=== PATIENT | female | born 1980 | race Caucasian/White ===

== ENCOUNTER 2016-04-06 08:33 | Emergency (ER) | payer SELFPAY ==
[~2016-04-06] VITALS: Ht 160 cm; Wt 56.7 kg
[2016-04-06 09:00] VITALS: BP 124/81
[2016-04-06] MEDS ORDERED: SULF1TAB24 PO (09:09)
--- NOTE | 2016-04-06 09:09 | PHYS DOC ---
Adult General Chief Complaint Chief Complaint: UPPER EXTREMITY SWELLING [facility] HPI Patient is a 35 year old female presents with concern for a rash to left arm and an area of redness and crusting. Denies fever, known illness exposure, or accompanying symptoms. Reports area itches intermittently Review of Systems Review of Systems Constitutional: Denies fever or chills Eyes: Denies change in visual acuity, redness, or eye pain HENT: Denies nasal congestion or sore throat Respiratory: Denies cough or shortness of breath Cardiovascular: No additional information not addressed in HPI GI: Denies abdominal pain, nausea, vomiting, bloody stools or diarrhea : Denies dysuria or hematuria Musculoskeletal: Denies back pain or joint pain Integument: Rash to left upper arm with area of redness Neurologic: Denies headache, focal weakness or sensory changes Endocrine: Denies polyuria or polydipsia Allergies Allergies Allergies Coded Allergies Type Severity Reaction Last Updated Verified No Known Drug Allergies 04/06/16 No Physical Exam Physical Exam Constitutional: Well developed, well nourished, no acute distress, non-toxic appearance. HENT: Normocephalic, atraumatic, bilateral external ears normal, oropharynx moist, no oral exudates, nose normal. Eyes: PERRLA, EOMI, conjunctiva normal, no discharge. Neck: Normal range of motion, no tenderness, supple, no stridor. Cardiovascular:Heart rate regular rhythm, no murmur Lungs & Thorax: Bilateral breath sounds clear to auscultation Abdomen: Bowel sounds normal, soft, no tenderness, no masses, no pulsatile masses. Skin: Warm, dry. 2cm area of maculopapular rash with 1cm area of excoriation and minimal surrounding redness and warmth without swelling. Back: No tenderness, no CVA tenderness. Extremities: No tenderness, no cyanosis, no clubbing, ROM intact, no edema. Neurologic: Alert and oriented X 3, normal motor function, normal sensory function, no focal deficits noted. [] Psychologic: Affect normal, judgement normal, mood normal. [] Current Patient Data Vital Signs Vital Signs Date Time Temp Pulse Resp B/P Pulse Ox O2 Delivery O2 Flow Rate FiO2 04/06/16 09:00 98.4 90 18 97 Room Air 98.4 EKG EKG [] Radiology/Procedures Radiology/Procedures [] Impressions: 1. COntact dermatitis 2. Cellulitis Course & Med Decision Making Course & Med Decision Making Pertinent Labs and Imaging studies reviewed. (See chart for details) [] Dragon Disclaimer Dragon Disclaimer This electronic medical record was generated, in whole or in part, using a voice recognition dictation system. Departure Departure Impression: Primary Impression: Contact dermatitis Additional Impression: Cellulitis Disposition: HOME, SELF-CARE Condition: STABLE Referrals: [facility] MARIA DO (PCP) Patient Instructions: Cellulitis, [id number], Contact Dermatitis, Easy-to- Read Additional Instructions: 1. Take all medication as prescribed. 2. Follow up with dermatology and primary doctor as discussed 3. Return if problems or concerns Scripts Sulfamethoxazole/Trimethoprim (Bactrim Ds Tablet)1 Each Tablet1 Each PO BID 5 Days Prov:JOSE MANUEL RUCKER APRN 04/06/16 Problem Qualifiers JOSE MANUEL RUCKER APRN Apr 06, 2016 09:09
== END 2016-04-06 09:40 | disposition home or self-care (01) ==
LOC: ER 08:33
DX: L03.114 Cellulitis of left upper limb (principal)
CPT/HCPCS: 99283